=== PATIENT | female | born 1990 | race Asian ===

== ENCOUNTER 2017-02-02 13:30 | Emergency (ER) | payer OTHER ==
[~2017-02-02] VITALS: Ht 165.1 cm; Wt 57.1 kg
[2017-02-02 13:46] VITALS: Ht 165.1 cm; Wt 57.1 kg
[2017-02-02 15:31] LABS: URINE BLOOD (Dip) POC Trace-intact (NEGATIVE)
[2017-02-02 15:43] LABS: ADD SCAN DIFF NO
[2017-02-02 15:46] LABS: BASOPHILS % 0.4 % (0.0-2.0); EOSINOPHILS # 0.1 10^3/ul (0.0-0.5); HEMATOCRIT 38.8 % (37.0-47.0); HEMOGLOBIN 13.3 g/dl (12.0-16.0); LYMPHOCYTES # 2.1 10^3/ul (0.8-2.9); LYMPHOCYTES % 26.7 % (15.0-51.0); MEAN CORPUSCULAR HEMOGLOBIN 31.1 pg (29.0-33.0); MEAN CORPUSCULAR HGB CONC 34.3 g/dl (32.0-37.0); MEAN CORPUSCULAR VOLUME 90.7 fl (82.0-101.0); MEAN PLATELET VOLUME 9.7 fl (7.4-10.4); MONOCYTE # 0.5 10^3/ul (0.3-0.9); MONOCYTES % 6.4 % (0.0-11.0); NEUTROPHILS % 65.2 % (39.0-77.0); PLATELET COUNT 195 10^3/UL (140-415); RED BLOOD COUNT 4.28 10^6/ul (4.20-5.40); RED CELL DISTRIBUTION WIDTH 12.1 % (11.5-14.5); WHITE BLOOD COUNT 7.7 10^3/ul (4.8-10.8)
--- NOTE | 2017-02-02 16:18 | RADRPT ---
PROCEDURE: OBSTETRICAL ULTRASOUND WITH ENDOVAGINAL IMAGES CLINICAL INDICATION: Vaginal Bleed () TECHNIQUE: Multiple sonographic images of the pelvis were obtained utilizing a transabdominal and endovaginal technique. The images were reviewed on a PACS workstation. COMPARISON: None. LMP: 12/23/2016 Gestational age by LMP: 5 weeks, 6 days FINDINGS: The uterus measures 9.8 x 5.4 x 8.8 cm. A possible intrauterine gestational sac is identified with mean sac diameter of 1.46 cm which would be consistent with a gestational age of 6 weeks, 1 day and an estimated date of delivery of 09/27/19 18 . A possible yolk sac is identified within it, but no pole.. The right ovary measures 2.2 x 1.1 x 1.2 cm. The left ovary measures 2.5 x 1.9 x 2.3 cm. There is no rmal vascular flow in both ovaries. There is a 2.5 cm thick-walled cystic lesion with eccentric internal echoes and prominent peripheral vascular flow in the left ovary which is likely a corpus luteal cyst. There is mild free fluid in the left adnexa. IMPRESSION: A possible intrauterine gestational sac is identified which would be consistent with a gestational a ge of 6 weeks, 1 day . A possible yolk sac is identified within it, but no pole. Findings may be due to an early intrauterine although an ectopic is not excluded. Short-ter m follow-up ultrasound and serial Beta HCG measurements are recommended for further evaluation. 2.5 cm complex cystic lesion in the left ovary is likely a corpus luteal cyst. Attention on follow- up is recommended. RPTAT: EE Physician Edel Date Time Electronically viewed and signed by Jacob Herrera Physician on 02/02/2017 16:18 /
[2017-02-02 16:34] LABS: ADD UMIC YES; UR BILIRUBIN (Dip) NEGATIVE (NEGATIVE); UR BLOOD (Dip) TRACE (NEGATIVE); UR CLARITY CLEAR (CLEAR); UR COLOR LT. YELLOW (YELLOW); UR GLUCOSE (Dip) NEGATIVE (NEGATIVE); UR KETONES (Dip) NEGATIVE (NEGATIVE); UR LEUKOCYTE ESTERASE (Dip) NEGATIVE (NEGATIVE); UR NITRITE (Dip) NEGATIVE (NEGATIVE); UR TOTAL PROTEIN (Dip) NEGATIVE (NEGATIVE); UR UROBILINOGEN (Dip) 0.2 E.U./dL (0.1-1.0)
[2017-02-02 16:46] LABS: UR SQUAMOUS EPITHELIAL CELL OCCASIONAL; URINE RBCS 0-2 /HPF (0)
[2017-02-02] MEDS ORDERED: PRENAT PO (16:59)
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
== END 2017-02-02 17:11 | disposition home or self-care (01) ==
LOC: FTE 13:30
DX: O9A.211 Injury, poisoning and certain other consequences of external causes complicating pregnancy, first trimester (principal); O20.9 Hemorrhage in early pregnancy, unspecified; S39.92XA Unspecified injury of lower back, initial encounter; V49.50XA Passenger injured in collision with unspecified motor vehicles in traffic accident, initial encounter; Z3A.01 Less than 8 weeks gestation of pregnancy
CPT/HCPCS: 76801; 76817; 81001; 81003; 84702; 85025; 86900; 86901